=== PATIENT | male | born 1970 | race Asian ===

== ENCOUNTER → 2021-11-15 20:13 | Emergency (ER) | payer OTHER ==
[~2021-11-15] VITALS: Ht 165.1 cm; Wt 67.6 kg
[~2021-11-15 20:13] MED LIST: KETOROLAC TROMETH 60MG/2ML VIAL IM ONE
[2021-11-16 02:57] VITALS: BP 162/98
== END | disposition home or self-care (01) ==
LOC: ER 20:13 → EDBD 20:13 → ER 11-16 03:16
DX: M54.50 Low back pain, unspecified (principal); M54.2 Cervicalgia; V43.52XA Car driver injured in collision with other type car in traffic accident, initial encounter; Y93.89 Activity, other specified; Y92.488 Other paved roadways as the place of occurrence of the external cause; Y99.8 Other external cause status
CPT/HCPCS: 72100; 72125; 96372; 99284; J1885